=== PATIENT | female | born 1930 | race Caucasian/White ===

== ENCOUNTER → 2017-03-04 | Outpatient (CLI) | payer MEDICARE, OTHER ==
--- NOTE | 2017-03-05 08:29 | CT ---
EXAM DESCRIPTION: Abdomen/Pelvis w/wo Contrast CLINICAL HISTORY: ABDOMEN MASS, SUPRAPUBIC ABDOMINAL PAIN COMPARISON: None. TECHNIQUE: CT of the abdomen and pelvis was performed with IV contrast only.. Multiple axial images and multiplanar reconstructions were generated. This exam was performed according to our department minimal dose optimization program which includes automated exposure control, adjustment of mA and/or kV according to patient size and/or use of iterative reconstructed techniques. FINDINGS: Large hiatal hernia noted. Lung bases are clear. Mild cardiomegaly. The liver, gallbladder, portal vein, pancreas, bilateral adrenal glands, left kidney and the right kidney are without acute findings. Splenectomy noted. Atherosclerotic disease noted without aneurysm of the abdominal aorta. 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 No suprapubic soft tissue abnormality. Calcified uterine fibroids noted. The urinary bladder is unremarkable. Query constipation and possible stool impaction. IMPRESSION: 1. Large hiatal hernia noted. 2. 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 3. No intra-abdominal or intrapelvic or suprapubic abnormality to account for patient's findings. Electronically signed by: Florencio Pickard MD 03/05/2017 8:29 AM CDT
== END | disposition home or self-care (01) ==
LOC: CT 10:40
PROVIDERS: ATTEND General Practice
DX: R10.30 Lower abdominal pain, unspecified (principal)